=== PATIENT | female | born 1955 | race African-American/Black ===

== ENCOUNTER 2018-11-06 14:55 | Emergency (ER) | payer SELFPAY ==
[~2018-11-06] VITALS: Ht 165.1 cm; Wt 93.2 kg
[2018-11-06] MEDS ORDERED: BENZ1TAB10 PO (15:18)
[2018-11-06] MEDS ORDERED: IBUPROFEN 600 MG TABLET PO ONE (16:30)
[2018-11-06] MEDS ORDERED: PENICILLIN V POTASSIUM 500 MG TABLET PO ONE (16:30)
[2018-11-06 16:53] VITALS: BP 132/77
== END 2018-11-06 16:55 | disposition home or self-care (01) ==
LOC: EMS 15:05
DX: K08.89 Other specified disorders of teeth and supporting structures (principal); R03.0 Elevated blood-pressure reading, without diagnosis of hypertension; F20.9 Schizophrenia, unspecified; F17.210 Nicotine dependence, cigarettes, uncomplicated